=== PATIENT | male | born 1955 | race American Indian/Alaskan Native ===

== ENCOUNTER 2016-07-10 08:24 | Emergency (ER) | payer OTHER ==
[2016-07-10 09:47] LABS: Bilirubin,Urine NEG (Negative); Blood,Urine MOD (Negative); Ketones,Urine NEG (Negative); Leukocyte Esterase,Urine MOD (Negative); Mucus,Urine FEW /HPF; Nitrite,Urine NEG (Negative); Protein,Urine <15 mg/dL mg/dL (Negative)
--- NOTE | 2016-07-10 09:54 | Ultrasound Report ---
ULTRASOUND TESTICULAR DOPPLER COMPLETE History: Scrotal pain, right testicular pain, blood leaking from penis. Technique: Trans-scrotal ultrasound with spectral doppler interrogation. Findings: The right testicle measures 4.5 x 2.9 x 3.0 cm. The left testicle measures 4.7 x 2.2 x 2.6 cm. There is no evidence for testicular cyst, mass or calcifications. No convincing findings of epididymoorchitis. The epididymides are within normal limits. Moderate right hydrocele and small left hydrocele are identified. These hydroceles appear to contain moderate debris but no septation. Spectral Doppler waveforms demonstrate no evidence for testicular torsion. IMPRESSION: Bilateral hydroceles, right greater than left.
--- NOTE | 2016-07-10 10:47 | Emergency Department Report ---
ED Male HPI - General Chief complaint: Urogenital-Male Stated complaint: GROIN PAIN Time Seen by Provider: 07/10/16 10:39 Source: patient Mode of arrival: Ambulatory Limitations: No Limitations - History of Present Illness Complaint: testicle pain - Related Data Allergies Allergy/AdvReac Type Severity Reaction Status Date / Time No Known Allergies Allergy Unverified 07/10/16 09:02 ED Review of Systems ROS: Stated complaint: GROIN PAIN Other details as noted in HPI ED Past Medical Hx - Surgical History Additional Surgical History: Appendix - Social History Smoking Status: Never Smoker Substance Use Type: None ED Physical Exam - General Limitations: No Limitations ED Course Vital Signs 07/10/16 09:02 Temperature 98.2 F Pulse Rate 92 H Respiratory 18 Rate Blood Pressure 204/129 O2 Sat by Pulse 99 Oximetry Critical care attestation.: If time is entered above; I have spent that time in minutes in the direct care of this critically ill patient, excluding procedure time. ED Disposition Condition: Stable Referrals: PRIMARY CARE [Primary Care Provider] - 3-5 Days
[2016-07-10] MEDS ORDERED: CATAPRES PO ONE (10:57)
[2016-07-10] MEDS ORDERED: MOTRIN PO ONE (10:57)
[2016-07-10 11:59] VITALS: BP 173/114
--- NOTE | 2016-07-10 12:13 | Emergency Department Report ---
Entered by KRISTIAN MURILLO, acting as scribe for DREW MOMIN PA. ED Male HPI - General Chief complaint: Urogenital-Male Stated complaint: GROIN PAIN Time Seen by Provider: 07/10/16 10:39 Source: patient Mode of arrival: Ambulatory Limitations: No Limitations - History of Present Illness Initial comments: 61 y/o male with no significant PMHx presents to the ED c/o bilateral testicular pain and swelling that began 1 month ago, worsening 2 days ago. Patient states he had similar symptoms 1 year ago and was diagnosed with Hydrocele. Rates pain a 3/10 in severity. Associated symptom includes hematuria , but he denies urgency, frequency, dysuria, abdominal pain, chest pain, SOB, fever, and chills. Denies any injury to testicular area. Works in [employer] Complaint: testicle pain (bilateral testicular pain), testicle swelling ( bilateral) Onset/Timin -: days(s) Location: right testicle, left testicle Radiation: none Severity: moderate Severity scale (0 -10): 3 Consistency: constant Improves with: none Worsens with: none denies other symptoms, swelling, blood in urine. denies: discharge, urinary retention, dysuria, fever, nausea/vomiting, incontinence, other (chest pain, SOB , tingling, and numbness) - Related Data Previous Rx's Medication Instructions Recorded Last Taken Type Ciprofloxacin HCl [Ciprofloxacin 500 mg PO Q12HR #20 tab 07/10/16 Unknown Rx TAB] Hydrochlorothiazide [HCTZ] 25 mg PO QDAY #30 tablet 07/10/16 Unknown Rx amLODIPine [Norvasc] 5 mg PO DAILY #30 tab 07/10/16 Unknown Rx Allergies Allergy/AdvReac Type Severity Reaction Status Date / Time No Known Allergies Allergy Unverified 07/10/16 09:02 ED Review of Systems Comment: All other systems reviewed and negative Constitutional: no symptoms reported. denies: chills, fever, other (tingling) Eyes: as per HPI ENT: as per HPI Respiratory: no symptoms reported. denies: cough, shortness of breath Cardiovascular: as per HPI. denies: chest pain, palpitations, edema, syncope Endocrine: no symptoms reported Gastrointestinal: as per HPI. denies: abdominal pain, nausea, vomiting Genitourinary: as per HPI, hematuria, testicular pain (bilateral testicular pain ), other (bilateral testicular swelling). denies: urgency, dysuria, frequency, discharge Musculoskeletal: as per HPI Skin: as per HPI. denies: rash Neurological: as per HPI. denies: numbness ED Past Medical Hx - Past Medical History Previous Medical History?: No - Surgical History Additional Surgical History: Appendix - Family History Family history: diabetes (mother), hypertension (mother) - Social History Smoking Status: Never Smoker Substance Use Type: None - Medications Home Medications: Home Medications Medication Instructions Recorded Confirmed Last Taken Type Ciprofloxacin HCl [Ciprofloxacin 500 mg PO Q12HR #20 tab 07/10/16 Unknown Rx TAB] Hydrochlorothiazide [HCTZ] 25 mg PO QDAY #30 tablet 07/10/16 Unknown Rx amLODIPine [Norvasc] 5 mg PO DAILY #30 tab 07/10/16 Unknown Rx ED Physical Exam - General Limitations: No Limitations General appearance: alert, in no apparent distress - Head Head exam: Present: atraumatic, normocephalic - Eye Eye exam: Present: normal appearance, EOMI Pupils: Present: normal accommodation - ENT ENT exam: Present: normal exam, mucous membranes moist - Neck Neck exam: Present: normal inspection, full ROM - Respiratory Respiratory exam: Present: normal lung sounds bilaterally. Absent: respiratory distress, wheezes, rales, rhonchi - Cardiovascular Cardiovascular Exam: Present: regular rate (S1/S2), normal rhythm. Absent: systolic murmur, diastolic murmur, rubs, gallop - GI/Abdominal GI/Abdominal exam: Present: soft, normal bowel sounds - exam: Present: normal inspection ( present during the exam), testicular tenderness, scrotal swelling. Absent: urethral discharge, circumcision External exam: Present: normal external exam ( present during the exam), swelling (bilateral testicular swelling). Absent: erythema, lesions, lacerations, ecchymosis, bleeding - Extremities Exam Extremities exam: Present: normal inspection, full ROM - Back Exam Back exam: Present: normal inspection, full ROM - Neurological Exam Neurological exam: Present: alert, oriented X3 - Psychiatric Psychiatric exam: Present: normal affect, normal mood - Skin Skin exam: Present: warm, dry, intact. Absent: rash ED Course Vital Signs 07/10/16 07/10/16 07/10/16 09:02 10:56 11:02 Temperature 98.2 F Pulse Rate 92 H 85 86 Respiratory 18 16 Rate Blood Pressure 204/129 200/127 Blood Pressure 203/133 [Left] O2 Sat by Pulse 99 96 Oximetry ED Medical Decision Making - Medical Decision Making Patient was evaluated in fast track area of ED by this provider. Patient presented with bilateral testicular pain and swelling for 2 days. Patient's ultrasound of testicles shows Hydrocele present on both testicles, but the right testicle is worse. Patient's UA shows that he has bacteria present with moderate amounts of urine. Patient is in no acute distress at this time. He will be treated for a urinary tract infection. He will be discharged home with prescription of Ibuprofen for pain. Patient instructed to follow up with an Urologist. Patient verbalized understanding. He is encouraged to return to the emergency room for any worsening symptoms. ED Disposition Clinical Impression: Hydrocele in adult, HTN (hypertension) Urinary tract infection Qualifiers: Urinary tract infection type: site unspecified Hematuria presence: with hematuria Qualified Code(s): N39.0 - Urinary tract infection, site not specified ; R31.9 - Hematuria, unspecified Disposition: DISCHARGED TO HOME OR SELFCARE Is pt being admited?: No Does the pt Need Aspirin: No Condition: Stable Instructions: Hypertension (ED), Urinary Tract Infection in Men (ED), Hydrocele (ED), Testicle Pain (ED) Additional Instructions: Please take antibiotics and blood pressure medicine as prescribed. It is very important for you to follow-up with a urologist as well as a primary care provider for elevated blood pressure. Prescriptions: amLODIPine [Norvasc] 5 mg PO DAILY #30 tab Ciprofloxacin HCl [Ciprofloxacin TAB] 500 mg PO Q12HR #20 tab Hydrochlorothiazide [HCTZ] 25 mg PO QDAY #30 tablet Referrals: NETTIE LEONE MD [Primary Care Provider] - 3-5 Days SHAHAB BURKETT MD [Staff Physician] - 3-5 Days LIAM BRENNER MD [Staff Physician] - 3-5 Days FRANKY BUI MD [Referring] - 3-5 Days VIRGIE MAYEN MD [Staff Physician] - 3-5 Days Forms: Work/School Release Form(ED) This documentation as recorded by the CHIDI skinner JASMINE,accurately reflects the service I personally performed and the decisions made by , DREW MOMIN PA.
== END 2016-07-10 12:17 | disposition home or self-care (01) ==
LOC: ED 08:24
DX: N43.3 Hydrocele, unspecified (principal); N39.0 Urinary tract infection, site not specified; I10 Essential (primary) hypertension
CPT/HCPCS: 81001; 87591; 93975; 99284

== ENCOUNTER 2017-06-18 23:44 | Emergency (ER) | payer OTHER ==
[2017-06-19 01:48] LABS: Basophils % (Auto) 0.2 % (0.0-1.8); Eosinophils % (Auto) 0.1 % (0.0-4.3); Hematocrit 42.7 % (35.5-45.6); Hemoglobin 14.7 gm/dl (11.8-15.2); Lymphocytes # (Auto) 1.1 K/mm3 (1.2-5.4); Lymphocytes % (Auto) 9.7 % (13.4-35.0); Mean Corpuscular HGB Conc 35 % (32-34); Mean Corpuscular Hemoglobin 29 pg (28-32); Mean Corpuscular Volume 83 fl (84-94); Monocytes # (Auto) 0.8 K/mm3 (0.0-0.8); Monocytes % (Auto) 6.4 % (0.0-7.3); Platelet Count 258 K/mm3 (140-440); Red Blood Count 5.16 M/mm3 (3.65-5.03); Red Cell Distribution Width 14.9 % (13.2-15.2)
[2017-06-19 01:49] LABS: Bacteria,Urine 1+ /HPF (Negative); Bilirubin,Urine NEG (Negative); Blood,Urine LG (Negative); Color,Urine Red (Yellow); Urobilinogen,Urine < 2.0 mg/dL (<2.0)
[2017-06-19 01:51] LABS: RBC,Urine > 182.0 /HPF (0.0-6.0); WBC,Urine > 182.0 /HPF (0.0-6.0)
[2017-06-19 02:09] LABS: Alanine Aminotransferase 26 units/L (7-56); Albumin 4.4 g/dL (3.9-5); BUN/Creatinine Ratio 14; Blood Urea Nitrogen 13 mg/dL (9-20); Calcium 9.6 mg/dL (8.4-10.2); Hemolysis Index 5
--- NOTE | 2017-06-19 06:36 | Emergency Department Report ---
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 Also having some right testicular pain. He does have a previous history of hydrocele -: Gradual, unknown Consistency: intermittent Associated Symptoms: denies: confusion, chest pain, cough, diaphoresis, fever/ chills, headaches, loss of appetite, malaise, nausea/vomiting, rash, seizure, shortness of breath, syncope, weakness - Related Data Home Medications Medication Instructions Recorded Confirmed Last Taken Amlodipine Besylate 10 mg PO HS 06/19/17 06/19/17 Unknown Previous Rx's Medication Instructions Recorded Last Taken Type Hydrochlorothiazide [HCTZ] 25 mg PO QDAY #30 tablet 07/10/16 Unknown Rx amLODIPine [Norvasc] 5 mg PO DAILY #30 tab 07/10/16 Unknown Rx Allergies Allergy/AdvReac Type Severity Reaction Status Date / Time No Known Allergies Allergy Unverified 07/10/16 09:02 ED Review of Systems ROS: Stated complaint: BLEEDING WHEN HE PEE Other details as noted in HPI Comment: All other systems reviewed and negative Constitutional: denies: diaphoresis, fever Eyes: denies: eye discharge, vision change ENT: denies: dental pain, hearing loss, epistaxis Respiratory: denies: shortness of breath, SOB with exertion, SOB at rest, stridor Cardiovascular: denies: chest pain, palpitations, dyspnea on exertion, orthopnea , edema, syncope, paroxysmal nocturnal dyspnea Gastrointestinal: abdominal pain. denies: diarrhea, constipation, hematemesis, melena, hematochezia Genitourinary: hematuria Neurological: denies: headache, weakness, numbness, paresthesias, confusion, abnormal gait, vertigo ED Past Medical Hx - Past Medical History Hx Hypertension: Yes Hx of Cancer: Yes (penile) - Surgical History Past Surgical History?: Yes Hx Appendectomy: Yes Additional Surgical History: Penile surgery - Social History Smoking Status: Never Smoker Substance Use Type: None - Medications Home Medications: Home Medications Medication Instructions Recorded Confirmed Last Taken Type Hydrochlorothiazide [HCTZ] 25 mg PO QDAY #30 tablet 07/10/16 06/19/17 Unknown Rx amLODIPine [Norvasc] 5 mg PO DAILY #30 tab 07/10/16 06/19/17 Unknown Rx Amlodipine Besylate 10 mg PO HS 06/19/17 06/19/17 Unknown History ED Physical Exam - General Limitations: No Limitations General appearance: alert, in no apparent distress, anxious - Head Head exam: Present: atraumatic, normocephalic - Eye Eye exam: Present: normal appearance, PERRL, EOMI - ENT ENT exam: Present: normal exam, normal orophraynx - Neck Neck exam: Present: normal inspection. Absent: tenderness, meningismus - Respiratory Respiratory exam: Present: normal lung sounds bilaterally. Absent: respiratory distress, wheezes, rales, rhonchi, stridor, accessory muscle use, decreased breath sounds, prolonged expiratory - Cardiovascular Cardiovascular Exam: Present: regular rate, normal rhythm, normal heart sounds - GI/Abdominal GI/Abdominal exam: Present: soft. Absent: distended, tenderness, guarding, rebound, rigid, mass, pulsatile mass - Extremities Exam Extremities exam: Present: normal inspection, normal capillary refill. Absent: pedal edema, joint swelling, calf tenderness - Back Exam Back exam: Present: normal inspection. Absent: CVA tenderness (L), muscle spasm , paraspinal tenderness, vertebral tenderness - Neurological Exam Neurological exam: Present: alert, oriented X3, CN II-XII intact. Absent: motor sensory deficit - Skin Skin exam: Present: warm. Absent: cyanosis, diaphoretic, erythema, urticaria, vesicles ED Course Vital Signs 06/19/17 06/19/17 06/19/17 00:19 01:11 03:56 Temperature 99.0 F 99 F Pulse Rate 107 H 102 H Respiratory 20 20 Rate Blood Pressure 149/88 149/88 O2 Sat by Pulse 97 97 96 Oximetry 06/19/17 06/19/17 06/19/17 04:00 04:01 04:30 Temperature Pulse Rate Respiratory 18 Rate Blood Pressure 139/89 140/88 O2 Sat by Pulse 96 99 Oximetry 06/19/17 06/19/17 06/19/17 05:00 05:30 06:00 Temperature Pulse Rate Respiratory Rate Blood Pressure 140/82 154/88 147/93 O2 Sat by Pulse 88 98 91 Oximetry 06/19/17 06/19/17 06/19/17 06:30 07:59 08:00 Temperature Pulse Rate Respiratory 12 Rate Blood Pressure 149/87 149/87 153/83 O2 Sat by Pulse 96 95 94 Oximetry ED Medical Decision Making - Lab Data Result diagrams: 06/19/17 01:32 06/19/17 01:32 - Radiology Data Radiology results: report reviewed - Medical Decision Making CT shows kidney stones but no ureteral stone or hydronephrosis, UA shows likely UTI, also shows normal flow to the testes with some epididymal prominence chronic bilateral hydrocele patient is acute administering by mouth vital signs are stable is not septic stable for outpatient follow-up Critical care attestation.: If time is entered above; I have spent that time in minutes in the direct care of this critically ill patient, excluding procedure time. ED Disposition Clinical Impression: Hematuria, UTI (urinary tract infection), Kidney stones, Hydrocele Disposition: TO HOME OR SELFCARE Is pt being admited?: No Condition: Stable Instructions: Urinary Tract Infection in Men (ED), Acute Hematuria (ED), Kidney Stones (ED), Hydrocele (ED) Additional Instructions: See her urologist, see the doctor listed, return if new or alarming symptoms Referrals: SHAHAB BURKETT MD [Primary Care Provider] - 3-5 Days LYUBOV BARRETT MD [Staff Physician] - 3-5 Days Time of Disposition: 10:41
--- NOTE | 2017-06-19 07:09 | Cat Scan Report ---
FINAL REPORT PROCEDURE: CT ABDOMEN PELVIS WO CON TECHNIQUE: Computerized axial tomography of the abdomen and pelvis was performed without intravenous contrast. This study is performed without intravascular contrast material and its sensitivity for abdominal and pelvic pathology, including neoplasms, inflammation, abscess, free fluid, thrombosis, arterial dissection and infarction, is reduced compared with a contrast enhanced study. HISTORY: flank pain COMPARISON: No prior studies are available for comparison. FINDINGS: Visualized lower thorax: No significant abnormality. Liver: Normal size and attenuation. Spleen: Normal size and attenuation. Gallbladder and biliary system: There is cholelithiasis. There is no cholecystitis or biliary ductal dilatation.. Pancreas: Normal. Adrenals: Normal. Kidneys: There is scarring of the right kidney apex. There are tiny stones in the left kidney. There are no ureteral stones. There is no hydronephrosis. GI tract: There is no bowel obstruction, colitis or enteritis. The appendix is not identified.. Lymph nodes and mesentery: Normal. Vasculature: Normal. Bladder: Normal. Reproductive organs: Normal. Peritoneum: There is no ascites or free air, abscess or adenopathy.. Musculoskeletal structures: No significant abnormality. Other: None. IMPRESSION: There is cholelithiasis. There is no cholecystitis or biliary ductal dilatation.. There is scarring of the right kidney apex. There are tiny stones in the left kidney. There are no ureteral stones. There is no hydronephrosis. There is no bowel obstruction, colitis or enteritis. The appendix is not identified.. There is no ascites or free air, abscess or adenopathy.. .
--- NOTE | 2017-06-19 07:50 | Ultrasound Report ---
ULTRASOUND SCROTAL INDICATION: Right testicular pain. COMPARISON: 07/10/2016. FINDINGS: Longitudinal and transverse grayscale and color flow sonographic evaluation of the scrotum and its contents demonstrates normal testicular contour and echotexture bilaterally without suspicious intrinsic lesions. Preserved bilateral testicular blood flow. Right testicle estimated at 3.6 x 2.4 x 2.7 cm while the left testicle is 4.1 x 2.2 x 2.6 cm. Moderate right and small left hydroceles, slightly larger since the prior exam. Few low level intrinsic echoes/possible debris. Right epididymal head is 1.3 x 0.9 x 0.7 cm, image 23. However, right epididymal body and tail is very prominently heterogeneous/enlarged and hypervascular as on images 24-27. Left epididymal head is 0.9 cm. No evidence of varicocele. CONCLUSION: Right epididymitis now noted, most involving its body and tail with bilateral hydroceles also again seen, as described. Please correlate. Thank you for the opportunity to participate in this patient's care.
[2017-06-19 11:33] VITALS: BP 144/96
== END 2017-06-19 11:52 | disposition home or self-care (01) ==
LOC: ED 23:44
DX: N39.0 Urinary tract infection, site not specified (principal); N43.3 Hydrocele, unspecified; I10 Essential (primary) hypertension; N20.0 Calculus of kidney
CPT/HCPCS: 36415; 74176; 80053; 81001; 85025; 87086; 93975; 99284